=== PATIENT | female | born 1960 | race Caucasian/White ===

== ENCOUNTER → 2017-05-11 | Outpatient (CLI) | payer BC ==
[~2017-05-11] MED LIST: NITR-5 PO; PHEN-876 PO
[2017-05-11 13:24] LABS: BASO ABS # 0.06 K/uL (0-0.2); COMPLETE YES; EOS % 1.6 %; HEMATOCRIT 37.5 % (37-47); IG% 0.2 %; LYMPH % 34.8 %; LYMPH ABS # 2.02 K/uL (1.2-3.4); MEAN CELL VOLUME 90.1 fL (80-100); MEAN CORPUSCULAR HEMOGLOBIN 30.5 pg (25-34); MEAN CORPUSCULAR HGB CONC 33.9 g/dl (32-36); MEAN PLATELET VOLUME 9.7 fL (7.4-10.4); MONO % 10.9 %; NEUT % 51.5 %; PLATELET COUNT 272 K/uL (130-400); RED BLOOD COUNT 4.16 M/uL (4.2-5.4)
[2017-05-11 13:39] LABS: GLUCOSE 87 mg/dl (70-99)
[2017-05-11 13:40] LABS: ALT/SGPT 20 U/L (12-78); AST/SGOT 19 U/L (15-37); BLOOD UREA NITROGEN 13 mg/dl (7-18); BUN/CREATININE RATIO 21.2 (10-20); CARBON DIOXIDE 29 mmol/L (21-32); CHLORIDE 106 mmol/L (98-107); POTASSIUM 3.8 mmol/L (3.5-5.1); SODIUM 142 mmol/L (136-145)
[2017-05-11 13:42] LABS: ALB/GLOB RATIO 1.1 (0.9-2); ALKALINE PHOSPHATASE 78 U/L (45-117)
== END | disposition home or self-care (01) ==
LOC: C.LABMFLN 11:01
PROVIDERS: ATTEND Physician Assistant
DX: Z00.00 Encounter for general adult medical examination without abnormal findings (principal); M81.0 Age-related osteoporosis without current pathological fracture

== ENCOUNTER → 2017-06-04 | Outpatient (CLI) | payer BC ==
--- NOTE | 2017-06-05 14:12 | MAMMOGRAPHY REPORT ---
BILATERAL DIGITAL SCREENING MAMMOGRAM TOMOSYNTHESIS WITH CAD: 06/04/2017 CLINICAL HISTORY: Routine screening. TECHNIQUE: Breast tomosynthesis in addition to standard 2D mammography was performed. Current study was also evaluated with a Computer Aided Detection (CAD) system. COMPARISON: Comparison is made to exams dated: 03/11/2016 mammogram, 03/27/2014 mammogram, 09/03/2012 ma mmogram, 08/19/2011 mammogram, 07/08/2010 mammogram, and 07/06/2009 mammogram - [facility]. BREAST COMPOSITION: The tissue of both breasts is heterogeneously dense, which may obscure small mas ses. FINDINGS: No suspicious masses, calcifications, or areas of architectural distortion are noted in ei ther breast. There has been no significant interval change compared to prior exams. Linear scar susan ers denote scars on the left breast. IMPRESSION: ACR BI-RADS CATEGORY 2: BENIGN There is no mammographic evidence of malignancy. A 1 year screening mammogram is recommended. The pa tient will receive written notification of the results. Approximately 10% of breast cancers are not detected with mammography. A negative mammographic report should not delay biopsy if a clinically suggestive mass is present. Merissa Fatima M.D. ah/:06/04/2017 13:45:31 [employer]: Romelia TYLER(R)(M), [facility] letter sent: Normal 1/2 BI-RADS Code: ACR BI-RADS Category 2: Benign
== END | disposition home or self-care (01) ==
LOC: C.MAMM 13:17
PROVIDERS: ATTEND Obstetrics & Gynecology
DX: Z12.31 Encounter for screening mammogram for malignant neoplasm of breast (principal)

== ENCOUNTER → 2017-07-06 | Outpatient (CLI) | payer BC | END | disposition home or self-care (01) | LOC: C.PAPS 11:17 | PROVIDERS: ATTEND Obstetrics & Gynecology | DX: Z01.419 Encounter for gynecological examination (general) (routine) without abnormal findings (principal) ==

== ENCOUNTER 2023-08-21 07:59 | Observation (INO) ==
--- NOTE | 2023-08-12 16:01 | Anesthesiology Consultation ---
Date of Service August 12, 2023 Assessment & Plan (1) Encounter for pre-operative examination: Chart Review Chart Review: Acceptable Risk for Surgery (pending DOS labs and EKG ) and Patient NOT seen in Pre Admission Testing - Check CBC with diff, PRP, and EKG stat DOS -Infectious Disease screening: Per PAT nursing assessment on 08/12/23. No known infectious disease contacts in past 10 days or current infectious disease symptoms. No recent travel outside the country. History Surgery Operation Date: 08/21/23 09:50 Proposed Procedures p Robotic Assisted Sacral Colpopexy - Skinny Munoz MD Height/Weight Height: 5 ft Weight: 56.699 kg Allergies Allergy/AdvReac Type Severity Reaction Status Date / Time cefuroxime [From Ceftin] Allergy Unknown Unknown Verified 08/12/23 15:02 erythromycin base AdvReac Mild Nausea Verified 08/12/23 15:02 Medications Home Medications Medication Instructions Recorded Confirmed Last Taken estradiol 10 mcg vaginal tablet 10 mcg vaginal 2XWK #24 tabs 07/01/23 08/12/23 Unknown (Yuvafem) magnesium citrate 85 mg chewable 170 mg PO HS 08/12/23 08/12/23 Unknown tablet Past Medical History Medical History Osteoporosis History of COVID-19 Dx'ed 07/2020 at [facility]- light headache, loss of taste/smell- recovered/symptoms resolved Anxiety HX Prolapse of female pelvic organs Ovarian cyst HX Past Family History Family History Father COVID Glaucoma Hypertension Mother Dementia Grandmother (Paternal) Family history of diabetes mellitus Grandmother (Maternal) Myocardial infarction Other No family history of adverse response to anesthesia Denies family history of Ovarian cancer Prostate cancer Breast cancer Lung cancer Colorectal cancer Past Surgical History Surgical History History of colonoscopy Nausea and vomiting after administration of anesthetic agent History of ovarian cystectomy Status post breast lumpectomy LEFT-BENIGN History of bladder surgery SLING History of hysterectomy History of cholecystectomy Social History Smoking Status: Never smoker Do You Dip or Chew Tobacco: No Hx Alcohol Use: Yes Alcohol type: wine alcohol intake frequency: holidays/special occasions only Hx Substance Use: No substance use type: does not use
--- NOTE | 2023-08-20 07:48 | History & Physical Report ---
Date of Service August 21, 2023 Assessment & Plan (1) Vaginal vault prolapse after hysterectomy: Plan Patient has tried a pessary in the past, but it easily fell out. She was not interested in trying a pessary again. She is seeking a durable surgical repair. We reviewed several surgical options including the risks of infection, bleeding, injury, and pain. 1. Sacrospinous ligament suspension, anterior colporrhaphy: I explained that this procedure is through a vaginal incision using sutures only. I reviewed the recurrence rates. 2. Robotic sacral colpopexy: I explained that this is performed through several laparoscopic abdominal incisions and does utilize synthetic mesh. I explained that this does provide greater durability with less recurrence of prolapse. I reviewed the risks of mesh exposure, chronic pain, bowel obstruction, infection, bleeding, injury, urinary incontinence. All questions answered. After answering her questions, she elected for the robotic sacral colpopexy. Informed consent signed. Admission and Anticipated Discharge Date Admission Date: 08/21/2023 History of Present Illness Chief Complaint: prolapse Primary Care Provider: MAUREEN Head Jenniffer Smith is a 63 year old woman P3 with vaginal prolapse. Jenniffer Marrero complains of feeling a vaginal bulge when phasically active, lifting, or working on her yard. She denies any urinary symptoms, frequency, incontinence, dysuria, incomplete emptying. She did have a laparoscopic hysterectomy, prolapse repair, and sling in [place] in 2007. She has tried a pessary in the past but it was easily dislodged. Urinary: Leakage: denies Has leakage denies Wears pads: no She denies a sense of incomplete bladder emptying. Prior/current treatment include: sling UTI: Denies UTI in the past year Voiding detail: Daytime frequency: every 3-4 hours Urgency occasional Nocturia:denies Hesitancy no Straining no Hematuria no Postvoid dribbling no Postvoid urgency no Manual reduction no Prolapse: She admits a palpable bulge. Her bulge symptoms have worsened over the last several months Prior/ current treatments include laparoscopic hysterectomy, prolapse repair, sling GI: Bowel habits: normal bowel movements. On occasional has fecal urgency with loose stool Allergies Allergy/AdvReac Type Severity Reaction Status Date / Time cefuroxime [From Ceftin] Allergy Unknown Unknown Verified 08/21/23 08:19 erythromycin base AdvReac Mild Nausea Verified 08/21/23 08:19 Home Medications Medication Instructions Recorded Confirmed Type estradiol 10 mcg vaginal tablet 10 mcg vaginal 2XWK #24 tabs 07/01/23 08/21/23 Rx (Yuvafem) magnesium citrate 85 mg chewable 170 mg PO HS 08/12/23 08/21/23 History tablet Patient History Medical History Osteoporosis History of COVID-19 Dx'ed 07/2020 at [facility]- light headache, loss of taste/smell- recovered/symptoms resolved Anxiety HX Prolapse of female pelvic organs Ovarian cyst HX Surgical History History of colonoscopy Nausea and vomiting after administration of anesthetic agent History of ovarian cystectomy Status post breast lumpectomy LEFT-BENIGN History of bladder surgery SLING History of hysterectomy History of cholecystectomy Family History Father COVID Glaucoma Hypertension Mother Dementia Grandmother (Paternal) Family history of diabetes mellitus Grandmother (Maternal) Myocardial infarction Other No family history of adverse response to anesthesia Denies family history of Ovarian cancer Prostate cancer Breast cancer Lung cancer Colorectal cancer Social History Smoking Status: Never smoker Second Hand Exposure: No; Do You Dip or Chew Tobacco: No; Tobacco Cessation Education Requested by Patient: No Hx Alcohol Use: Yes Alcohol type: wine Hx Substance Use: No Preferred Language: Palestinian Communication Ability: Effective Program Checker Required: No Beliefs That Will Affect Care: None Current Living Situation: Alone Other Information That Helps Us Care for You: No Feels Safe at Home: Yes Safety Concerns: Feels Safe At This Time Assistive Devices: Glasses Assistive Devices Comment: reading glasses OB History Weight of largest baby: 8.5 Vaginal deliveries: 3 C/S: 0 ASSOCIATE ACCOUNT DIRECTOR History laparoscopic hysterectomy, prolapse repair, and sling in [place] in 2007 Review of Systems All systems reviewed & are unremarkable except as noted in HPI & below Physical Exam Constitutional: WD/WN, vitals as above Eyes: PERRL, conjunctivae normal, anicteric sclerae ENMT: external ear and nose normal, oropharynx normal Neck: trachea midline, no thyromegaly Respiratory: normal respiratory effort, lungs clear to auscultation Cardiovascular: RRR, no murmur, no edema Gastrointestinal (Abdomen): normal bowel sounds, soft, nontender, no hepatosplenomegaly Musculoskeletal: no cyanosis or clubbing, extremities motor strength 5/5 Skin: no rashes, warm and dry Neurologic: PERRL, EOMI, accommodation nl, no face palsy, no dysarthria Psychiatric: A+Ox3, euthymic affect Results & Data Laboratory Results BASIC METABOLIC PANEL Order: [id number] Status: Final result Dx: Preop testing 0 Result Notes Component Ref Range & Units 7 d ago BUN 6 - 20 mg/dL 10 Creatinine 0.5 - 1.0 mg/dL 0.6 Estimated Glomerular Filtration Rate >=60 mL/min >90 Comment: eGFR is calculated based on the CKD-EPI 2020 equation Sodium 135 - 146 mmol/L 142 Potassium 3.5 - 5.1 mmol/L 3.8 Chloride 98 - 107 mmol/L 106 CO2 22 - 32 mmol/L 26 Anion Gap 7 - 15 mmol/L 10 Glucose 70 - 120 mg/dL 117 Calcium 8.4 - 10.2 mg/dL 9.1 Resulting Agency [facility] Specimen Collected: 08/13/23 15:59 Last Resulted: 08/14/23 01:02 CBC Order: [id number] Status: Final result Dx: Preop testing 0 Result Notes Component Ref Range & Units 7 d ago WBC 4.00 - 10.80 K/uL 8.54 RBC 3.85 - 5.15 M/uL 4.21 HGB 12.0 - 15.3 g/dL 12.6 HCT 36.0 - 45.2 % 39.3 MCV 81.5 - 97.5 fL 93.3 MCH 27.0 - 34.0 pg 29.9 MCHC 32.0 - 36.0 g/dL 32.1 RDW 11.5 - 15.5 % 11.6 PLT 140 - 400 K/uL 334 MPV 6.6 - 11.1 fL 9.8 nRBCs <=0 /100 WBCs 0 Resulting [facility] Specimen Collected: 08/13/23 15:59 Last Resulted: 08/14/23 00:34
[~2023-08-21 07:59] MED LIST changes: +GENTAMICIN CONSULT ACTIVE PRN; +GENTAMICIN SULFATE 240 MG in DEXTROSE 5% 100 ML IV SCH; +LR 15ML/HR IV SCH; -NITR-5 PO; -PHEN-876 PO; +SODIUM CHLORIDE 0.9% 1,000 ML IV SCH; +metroNIDAZOLE 500 MG/100 ML BAG IV SCH
[2023-08-21] MEDS ORDERED: ONDANSETRON INJ 2 MG/ML 2 ML VIAL ONE ×2 (08:08→12:11)
[2023-08-21] MEDS ORDERED: PROPOFOL IV EMULSION 10 MG/ML 20 ML VIAL IV ONE (08:08)
[2023-08-21] MEDS ORDERED: DEXAMETHASONE SOD INJ 4 MG/ML VIAL ONE (08:08)
[2023-08-21] MEDS ORDERED: LIDOCAINE 2% 2 ML VIAL/AMP(20MG/ML) INFIL ONE ×2 (08:08)
[2023-08-21] MEDS ORDERED: fentaNYL citrate PF 100 MCG/2 ML VIAL ONE (08:08)
[2023-08-21] MEDS ORDERED: MIDAZOLAM HCL 1 MG/ML 2ML VIAL ONE (08:08)
[2023-08-21] MEDS ORDERED: SCOPOLAMINE 1 MG TDSY TD ONE (09:20)
[2023-08-21] MEDS ORDERED: LABETALOL HCL IV 5 MG/ML 20ML IV PRN (09:22)
[2023-08-21] MEDS ORDERED: PROMETHAZINE HCL 12.5 MG in SODIUM CHLORIDE 0.9% 50 ML IV PRN (09:22)
[2023-08-21] MEDS ORDERED: ATROPINE SULFATE 0.1 MG/ML 10ML SYR IV PRN (09:22)
[2023-08-21] MEDS ORDERED: ONDANSETRON INJ 2 MG/ML 2 ML VIAL IV PRN ×2 (09:22→12:34)
[2023-08-21] MEDS ORDERED: HYDROmorphone INJ 1 MG/ML SYRINGE IV PRN (09:22)
[2023-08-21] MEDS ORDERED: NALOXONE HCL 0.4 MG/1 ML VIAL/CARP IV PRN (09:22)
[2023-08-21] MEDS ORDERED: ePHEDrine sulfate 50 MG/ML AMP IV PRN (09:22)
[2023-08-21] MEDS ORDERED: FLUMAZENIL 0.1 MG/1 ML 10 ML VIAL IV PRN (09:22)
[2023-08-21] MEDS ORDERED: SCOPOLAMINE 1 MG TDSY TD SCH (09:30)
--- OUTSIDE RECORDS SUMMARY | 2023-08-21 09:52 | External Medical Summary | Summary of Care ---
Author Name Unknown Organization [facility] Address [address] [place] [address] Phone [phone] Care Team Providers Care Control Board Operator Name Role Phone PalmaArdenra Chayo REDDY Primary Care Pro vider Encounter Details Date Type Department Care Team (Late st Contact Info) Description 08/19/2023 Result Scan Unspecified Department Amy John PA-C [address] [place] [id number] <No scans attached> Allergies Active Allergy Reactions Criticality Noted Date Comments Cefuroxime Axetil 12/22/2009 documented as of this encounter (statuses as of 08/20/2023) Medications No known medicationsdocumented as of this encounter (statuses as of 08/20/2023) Active Problems No known active problems documented as of this encounter (statuses as of 08/20/2023) Social History Tobacco Use Types Packs/Day Years Used Date Smoking Tobacco: Never Smokeless Tobacco: Never Sex and Gender Information Value Date Recorded Sex Assigned at Not on file Gender Identity Not on file Sexual Orientation Not on file Job Start Date Occupation Industry Not on file Not on file Not on file documented as of this encounter Plan of Treatment Upcoming Encounters Date Type Department Care Team (Late st Contact Info) Description 09/07/2023 10:00 AM EST [facility] [address] [place] [address] Skinny Munoz MD [address] [place] [id number] Health Maintenance Due Date Last Done Comments Lipid Panel 1959 COVID-19 Vaccine (#1) 1959 Depression Screening 1971 HIV Screening 1974 Hepatitis C Screening 1977 DTaP,Tdap,and Td Vaccines (1 - Tdap) 1978 Mammogram 1999 Cologuard 2004 Colonoscopy 2004 Colorectal Cancer Screening 2004 Fecal Occult Blood Test 2004 Sigmoidoscopy 2004 Zoster Vaccines (1 of 2) 2009 Influenza Vaccine (FLU shot) (#1) 2023 GARDASIL-HPV IMMUNIZATION SERIES Aged Out No longer eligible based on patient's age to complete this topic Hepatitis B Aged Out No longer eligi ble based on patient's age to complete this topic MENINGOCOCCAL (MENACTRA/MENVEO) Aged Out No longer eligible based on patient's age to complete this topic Pneumococcal Vaccine: Pediat rics (0 to 5 Years) and At-Risk Patients (6 to 64 Years) Aged Out No longer eligible b ased on patient's age to complete this topic documented as of this encounter Medical Devices Not on filedocumented as of this encounter Procedures Procedure Name Priority Date/Time Associated Diagnosis Comments OUTSIDE LAB RESULTS 08/19/2023 documented in this encounter Results * OUTSIDE LAB RESULTS (08/19/2023) 08/19/2023 Amy John PA-C LABORATORY documented in this encounter Care Teams Control Board Operator Relationship Specialty Start Date End Date Fabby Waldrop CRNP [address] [place] [id number] PCP - General Nurse Practitioner 05/07/21 documented as of this encounter
[2023-08-21] MEDS ORDERED: ROCURONIUM BROMIDE 10 MG/ML 5 ML VIAL IV ONE ×7 (09:54→10:54)
[2023-08-21] MEDS ORDERED: LIDOCAINE 1%/EPINEPHRINE 1:100,000 20 ML VIAL ONE (10:13)
[2023-08-21] MEDS ORDERED: BUPIVACAINE 0.5 % 5 MG/1 ML MPF 30ML VIAL ONE (10:13)
[2023-08-21] MEDS ORDERED: PREMARIN VAG CRM 14 APPLN/30 GM TUBE ONE (10:13)
--- NOTE | 2023-08-21 10:23 | History & Physical Bridge Note ---
Date of Service August 21, 2023 History & Physical Bridge Note I have examined the patient, reviewed the History & Physical and in the interval since the performance of the History & Physical I have noted the following changes of clinical significance: no changes noted
[2023-08-21] MEDS ORDERED: SUGAMMADEX SODIUM 200 MG/2 ML VIAL IV ONE (11:33)
[2023-08-21] MEDS ORDERED: MoRPHine SULFATE 2 MG/ML CARP ONE (11:54)
[2023-08-21] MEDS ORDERED: KETOROLAC 30 MG/ML VIAL ONE (11:54)
[2023-08-21] MEDS ORDERED: PHENYLEPHRINE 100MCG/ML 10ML SYR IV ONE (12:02)
[2023-08-21] MEDS ORDERED: oxyCODONE/ACETAMINOPHEN 5mg/325mg TAB PO PRN ×2 (12:34)
--- NOTE | 2023-08-21 12:57 | Operative Report ---
Post Operative Report Pre & Post Diagnosis Operation Date: 08/21/23 09:50 Pre-Op Diagnosis: Cystocele and Vaginal Vault Prolapse, Post Hysterectomy Post-Op Diagnosis: Cystocele and Vaginal Vault Prolapse, Post Hysterectomy I identified the patient and participated in the time-out.: Yes Procedure Operation Date: 08/21/23 09:50 Actual Procedures p Robotic Assisted Sacral Colpopexy, Cystoscopy(Not Applicable) - Skinny Munoz MD Surgeon Skinny Munoz MD Predator Control Trapper Amy John PA-C Estimated Blood Loss 20 Findings Consistent with Post-Op Diagnosis Normal atrophic ovaries bilaterally. Normal cystoscopy with excellent efflux of ureters bilaterally. Fluids crystalloid Specimens none Drains Ricketts catheter Anesthesia Type General Complications none Disposition Accompanied Patient To Recovery: Yes Disposition: Recovery Room Indications symptomatic cystocele, vaginal vault prolapse Description of Procedure After Jenniffer Marrero was correctly identified to person and procedure, I reviewed the indications, risks, benefits, and alternatives to the surgery today. All questions answered. Informed consent signed. Patient was taken to the operating room and given general anesthesia per anesthesia service. She was then placed in David stirrups and was prepped and draped in the usual fashion. Time out was performed. A Ricketts catheter was placed into the bladder. A bulb syringe was attached to a Hulka tenaculum and was placed into the vagina. Attention was focused to the abdomen. An umbilical 8 mm incision was made and a robotic 8 mm trocar with Optiview was placed through the incision and advanced into the abdominal cavity under visualization. Abdomen was insufflated. On the left two 8 mm trocars were placed and on the right, two 8 mm trocars were placed under direct visualization. Patient was placed in Trendelenburg position. The robot was docked. The bladder was dissected off the anterior vaginal wall for approximately 6 cm distally. The posterior peritoneum and rectum was dissected off the posterior vaginal wall for 8 cm distally. The sigmoid was retracted to the left. The ureters were well visualized. A peritoneal incision was made from the sacrum to the right corner of the vaginal cuff. The Y shaped mesh was then secured to the anterior and posterior vaginal armstrong with interrupted sutures of CV3 Olympia-keenan sutures. With appropriate tensioning, the tail of the Y mesh was secured to the anterior longitudinal ligament with three interrupted sutures of CV-0 Olympia-keenan. The excess mesh was trimmed and removed. The peritoneal incisiion was then closed over the mesh with 2-0 V-lock suture in a running fashion. The pelvis was irrigated and found to have excellent hemostasis. The robot was undocked, the trocars were removed. The skin incisions were closed with 4-0 Monocryl in a subcuticular fashion and dressed with surgical glue. The bulb syringe was removed from the vagina and found to have excellent support. Cystoscopy was performed with 300 ml of irrigation fluid. Systematic inspection of the bladder dome, trigone, and urethra revealed no lesions. Excellent efflux of ureters were demonstrated bilaterally. The bladder was drained and the Ricketts catheter was replaced. All sponge, lap, and needle counts were correct. The patient was awakened, extubated, and sent to recover room in good condition. I attest to the content of the Intraoperative Record and any orders documented therein. Any exceptions are noted below. No qualified resident available. Advanced practitioner, Amy John, was necessary for the procedure to provide position, prepping, draping, retraction, robotic docking, exchanging of instruments, and would closure.
[2023-08-21] MEDS: fentaNYL citrate PF 100 MCG/2 ML VIAL IV PRN ×2 (12:58→13:03)
--- NOTE | 2023-08-21 13:32 | Anesthesiology Progress Note ---
Date of Service August 21, 2023 Anesthesia Post Procedure Vital Signs Vital Signs: Temp Pulse Pulse Resp BP Pulse Ox O2 Del Method 08/21/23 13:05 60 16 122/68 100 Oxymask 08/21/23 12:55 74 21 137/82 100 Oxymask 08/21/23 12:45 79 18 159/88 H 100 Oxymask 08/21/23 12:35 97.0 F L 77 21 150/53 H 100 Oxymask 08/21/23 08:20 98.1 F 66 18 173/85 H 99 Room Air O2 Flow Rate 08/21/23 13:05 2 08/21/23 12:55 6 08/21/23 12:45 6 08/21/23 12:35 6 08/21/23 08:20 Pain Intensity Lower Abdomen: Pain Intensity: 5 Transfer of Care Handoff Completed per policy Notes Mental Status: alert / awake / arousable and participated in evaluation Patient Amnestic to Procedure: Yes Nausea / Vomiting: adequately controlled Pain: adequately controlled Airway Patency, RR, SpO2: stable & adequate BP & HR: stable & adequate Hydration State: stable & adequate Anesthetic Complications: no major complications apparent and Pt Satisfied with anesthetic care
[2023-08-21] MEDS: CHECK SCOPOLAMINE PATCH PLACEMENT SCH (16:00)
[2023-08-21] MEDS: IBUPROFEN 600 MG TAB PO PRN (23:19)
[2023-08-22] MEDS: CHECK SCOPOLAMINE PATCH PLACEMENT SCH ×2 (07:30)
[2023-08-22 07:44] LABS: Basophils # (auto) 0.04 K/uL (0.00-0.20); Basophils % (auto) 0.4 %; Eosinophils # (auto) 0.01 K/uL (0.00-0.50); Eosinophils % (auto) 0.1 %; Hematocrit (blood only) 33.2 % (37.0-47.0); Hemoglobin 10.8 g/dl (12.0-16.0); Immature Granulocytes # (auto) 0.05 K/uL (0.01-0.20); Immature Granulocytes % (auto) 0.5 %; Lymphocytes # (auto) 2.24 K/uL (1.20-3.40); Lymphocytes % (auto) 23.1 %; Mean Corpuscular Hemoglobin 29.8 pg (25.0-34.0); Mean Corpuscular Hgb Conc 32.5 g/dL (32.0-36.0); Mean Corpuscular Volume 91.5 fL (80.0-100.0); Mean Platelet Volume 9.6 fL (9.4-12.4); Monocytes # (auto) 1.14 K/uL (0.11-0.59); Monocytes % (auto) 11.7 %; Neutrophils # (auto) 6.23 K/uL (1.40-6.50); Neutrophils % (auto) 64.2 %; Platelet Count 265 K/uL (130-400); RDW Coefficient of Variation 11.7 % (11.5-14.5); RDW Standard Deviation 39.4 fL (36.4-46.3); Red Blood Count 3.63 M/uL (4.20-5.40); White Blood Count 9.71 K/ul (4.8-10.8)
[2023-08-22] MEDS: IBUPROFEN 600 MG TAB PO PRN (07:53)
[2023-08-22 08:07] LABS: Calcium 8.4 mg/dl (8.6-10.3); Creatinine Clr Calc Pharmacy 53.3 ml/min; Est GFR (African American) 87.6 ml/min; Est GFR (Non-African American) 75.6 ml/min
[2023-08-22] MEDS ORDERED: INFLUENZA VIRUS QUADRIVALENT VACCINE (IIV4) 0.5 ML SYR IM ONE (09:00)
== END 2023-08-22 09:30 | disposition home or self-care (01) | DRG 748 ==
LOC: ASU 07:59 → INTOOBSV 12:34 → PACUINP 12:34 → 4E2 16:23